=== PATIENT | male | born 1935 | race American Indian/Alaskan Native ===

== ENCOUNTER 2016-08-04 10:10 | Day surgery (SDC) | payer MEDICARE ==
[2016-08-04] MEDS ORDERED: WATER FOR IRRIG STERILE IR ONE (10:57)
[2016-08-04] MEDS ORDERED: NACL 0.9% 1000 ML 1,000 ML IV SCH (12:00)
--- NOTE | 2016-08-04 12:31 | Anesthesia Consultation ---
Anesthesia Consult and Med Hx Date of service: 08/04/16 - Airway Anesthetic Teeth Evaluation: Good ROM Head & Neck: Adequate Mental/Hyoid Distance: Adequate Mallampati Class: Class II Intubation Access Assessment: Good - Pulmonary Exam CTA: Yes - Cardiac Exam Cardiac Exam: RRR - Pre-Operative Health Status ASA Pre-Surgery Classification: ASA3 Proposed Anesthetic Plan: MAC - Cardiovascular System Hx Hypertension: Yes
[2016-08-04] MEDS ORDERED: DIPRIVAN 10 MG/ML IV ONE ×3 (13:02)
[2016-08-04] MEDS ORDERED: XYLOCAINE MPF 2% ONE (13:09)
--- NOTE | 2016-08-04 13:13 | Anesthesia Day of Surgery ---
Anesthesia Day of Surgery - Day of Surgery Patient Examined: Yes Patient H&P Reviewed: Yes Patient is NPO: Yes
--- NOTE | 2016-08-04 13:39 | Short Stay Summary ---
Short Stay Documentation Date of service: 08/04/16 Narrative H&P: The patient presents for surveillance colonoscopy for a history of adenomatous polyps. His last study was 8 years ago. - History Past Medical History: hypertension, hyperlipidemia Past Surgical History: hernia repair Social history: no significant social history, - Allergies and Medications Current Medications: Allergies No Known Allergies Allergy (Verified 08/03/16 12:45) Home Medications Medication Instructions Recorded Confirmed Last Taken Type AtorvaSTATin 1 tab PO DAILY 08/03/16 08/04/16 08/03/16 History Caltrate 600+D3+Min Chew Tab 1 tab PO DAILY 08/03/16 08/04/16 07/28/16 History Coq-10 1 tab PO DAILY 08/03/16 08/04/16 07/28/16 History Ginkgo Biloba 1 tab PO DAILY 08/03/16 08/04/16 07/28/16 History Lisinopril 1 tab PO DAILY 08/03/16 08/04/16 08/04/16 History Preservision Lutein Softgel 1 tab PO DAILY 08/03/16 08/04/16 08/03/16 History Vitamin D2 50,000 units PO 1XW 08/03/16 08/04/16 07/28/16 History Ziac 5-6.25 1 tab PO DAILY 08/03/16 08/04/16 08/04/16 History celeBREX 1 tab PO DAILY 08/03/16 08/04/16 07/28/16 History Active Medications Sodium Chloride (Nacl 0.9% 1000 Ml) 1,000 mls @ 50 mls/hr IV DIRECT ALEXIS Last Admin: 08/04/16 11:44 Dose: 50 mls/hr - Physical exam General appearance: no acute distress, well-nourished Integumentary: no rash, no abnormal pigmentation HEENT: Atraumatic, PERRLA, EOMI, Mucous membr. moist/pink Lungs: Clear to auscultation, Normal air movement Breasts: deferred Heart: Regular rate, Normal S1, Normal S2, No murmurs, no Gallops Gastrointestinal: normoactive bowel sounds, no tenderness, no distended, no masses, no guarding, no organomegaly Male Genitourinary: deferred Rectal Exam: normal exam-external/orifice, normal rectal tone, no mass Extremities: no ischemia, pulses intact, pulses symmetrical, No edema, normal temperature, normal color, Full ROM Neurological: Normal gait, Normal speech, Strength at 5/5 X4 ext, Normal tone, Sensation intact, Cranial nerves 3-12 NL - Brief post op/procedure progress note Date of procedure: 08/04/16 Findings: see dictated report Estimated blood loss: none Pathology: list (transverse colon polyp) Specimen disposition: to lab Condition: stable - Disposition Condition at discharge: Good Disposition: DISCHARGED TO HOME OR SELFCARE - Discharge Diagnoses (1) History of colon polyps Status: Acute Short Stay Discharge Plan Activity: other (no NSAIDs for 7 days. No driving for 24 hours. Call MD in one week on pathology) Diet: regular
--- NOTE | 2016-08-04 13:42 | Operative Report ---
Operative Report Operative Report: Date of procedure: 08/04/2016 Preprocedure diagnosis: History of adenomatous colon polyps. Last study 8 years ago. Post procedure diagnosis: 1 cm sessile polyp in the transverse colon Procedure: Colonoscopy to the cecum with submucosal saline injection and snare cautery polypectomy. Endoscopist: Dr. Montemayor Anesthesia: Monitored anesthesia care per anesthesia department Estimated blood loss: 0 Medications: Monitored anesthesia care. See separate report by anesthesia for details. After careful discussion of the nature and purpose of the procedure as well as details of the technique risks benefits and alternatives the patient gave consent. Please see recent history and physical from the office. The patient was placed in the left lateral decubitus position and medicated per anesthesia. A rectal exam was performed sphincter tone was normal there were no masses palpable. The [employer] scope was passed transanally and advanced under continuous direct vision without difficulty to the cecum. The colon was well prepared. The cecum was normal. The ascending colon was normal and on forward and retroflexed views. There was a 1 cm sessile, nearly flat polyp in the mid transverse colon. The polyp was injected with approximately 2 mL of saline to lift the mucosa from the submucosa and affect a complete polypectomy. Snare cautery polypectomy was achieved completely and the polyp was retrieved by suction. The transverse colon, descending colon, and sigmoid colon were normal except for a few sigmoid diverticula. The rectum was normal on forward and retroflexed views. The procedure was well-tolerated overall and the patient was observed in recovery. Conclusions: 1 cm sessile polyp in the transverse colon, few sigmoid diverticula. Plan: Await pathology report. Patient will call the office in 1 week. Repeat colonoscopy will be dictated by the pathology. Conservative care may be elected due to the patient's age. Family screening is advised or first-degree relatives. Signed electronically: Bhupinder Montemayor M.D.
[2016-08-04 14:07] VITALS: BP 131/58
--- NOTE | 2016-08-04 18:11 | Post Anesthesia Evaluation ---
- Post Anesthesia Evaluation Patient Participated: Yes Airway Patent: Yes Stable Respiratory Function: Yes Nausea/Vomiting: No Temp > 96.8F: Yes Pain Manageable: Yes Adequeate Hydration: Yes Anesthesia Complications: No Block Receding Appropriately: Not Applicable Patient on Ventilator: No
== END 2016-08-04 10:11 | disposition home or self-care (01) ==
LOC: GIO 10:10
PROVIDERS: ATTEND Internal Medicine Gastroenterology
DX: D12.3 Benign neoplasm of transverse colon (principal); K57.30 Diverticulosis of large intestine without perforation or abscess without bleeding; I10 Essential (primary) hypertension; E78.5 Hyperlipidemia, unspecified; Z98.890 Other specified postprocedural states
CPT/HCPCS: 45381; 45385; 88305; J2704